=== PATIENT | female | born 1990 | race Two or more races ===

== ENCOUNTER 2016-08-18 08:53 | Emergency (ER) | payer OTHER ==
[~2016-08-18] VITALS: Ht 160 cm; Wt 50.0 kg
[~2016-08-18 08:53] MED LIST: ZOFR4TAB3 SL
[2016-08-18 08:55] VITALS: BP 119/57; PULSE 97; RESP 18; TEMP 97.8; O2SAT 99
--- NOTE | 2016-08-18 09:38 | PD ---
HPI Chief Complaint: Anxiety Time Seen by Provider: 09:21 Travel History International Travel<30 days: No Contact w/Intl Traveler<30days: No Traveled to known affect area: No History of Present Illness HPI 25-year-old female with history of anxiety, not on any medication, here for evaluation of feeling very anxious. The patient reports that her anxiety has worsened over the last couple of weeks, worse over the last 4 days. She reports that she has had little sleep over the last 4 days, feels tremulous, has been nauseous and has had a few episodes of vomiting. She is having some mild epigastric discomfort associated with vomiting. She denies suicidal or homicidal ideation. Occasional alcohol use. No drug use. PFSH Past Medical History Anxiety: Yes Diminished Hearing: No Tetanus Vaccination: < 5 Years Influenza Vaccination: No ?: Not LMP: 07/19/16 : 2 Para: 0 Miscarriage: 0 : 2 Past Surgical History Joint Replacement: Yes (foot surgery ) Social History Alcohol Use: Yes (OCCASIONALLY) Tobacco Use: No Substance Use: No Allergies-Medications (Allergen,Severity, Reaction): Coded Allergies: No Known Allergies (Unverified , 08/18/16) Reported Meds & Prescriptions Reported Meds & Active Scripts Active No Active Prescriptions or Reported Medications Review of Systems Except as stated in HPI: all other systems reviewed are Neg Physical Exam Narrative GENERAL: Well-developed, well-nourished, comfortable, tremulous, no acute distress. SKIN: Warm and dry. No rash. HEAD: Atraumatic. Normocephalic. EYES: Pupils equal and round. No scleral icterus. No injection or drainage. ENT: Mucous membranes pink and moist. NECK: Trachea midline. No JVD. CARDIOVASCULAR: Regular rate and rhythm. No murmur appreciated. RESPIRATORY: No accessory muscle use. Clear to auscultation. Breath sounds equal bilaterally. GASTROINTESTINAL: Abdomen soft, non-tender, nondistended. MUSCULOSKELETAL: No obvious deformities. No clubbing. No cyanosis. No edema. NEUROLOGICAL: Awake and alert. No obvious cranial nerve deficits. Motor grossly within normal limits. Normal speech. PSYCHIATRIC: Appropriate mood and affect; insight and judgment normal. Data Data Last Documented VS Vital Signs Date Time Temp Pulse Resp B/P Pulse Ox O2 Delivery O2 Flow Rate FiO2 08/18/16 08:55 97.8 97 18 119/57 99 Room Air Orders Basic Metabolic Panel (Bmp) (08/18/16 09:59) Beta Hcg (Quant/Titer) (08/18/16 09:59) Complete Blood Count With Diff (08/18/16 09:59) Iv Access Insert/Monitor (08/18/16 09:59) Ecg Monitoring (08/18/16 09:59) Oximetry (08/18/16 09:59) Sodium Chlor 0.9% 1000 Ml Inj (Ns 1000 M (08/18/16 09:59) Sodium Chloride 0.9% Flush (Ns Flush) (08/18/16 10:00) Lorazepam Inj (Ativan Inj) (08/18/16 10:00) Labs Laboratory Tests Test 08/18/16 10:00 White Blood Count 6.9 TH/MM3 Red Blood Count 4.42 MIL/MM3 Hemoglobin 13.8 GM/DL Hematocrit 39.7 % Mean Corpuscular Volume 89.7 FL Mean Corpuscular Hemoglobin 31.1 PG Mean Corpuscular Hemoglobin 34.7 % Concent Red Cell Distribution Width 12.2 % Platelet Count 297 TH/MM3 Mean Platelet Volume 8.9 FL Neutrophils (%) (Auto) 75.2 % Lymphocytes (%) (Auto) 19.1 % Monocytes (%) (Auto) 5.4 % Eosinophils (%) (Auto) 0.1 % Basophils (%) (Auto) 0.2 % Neutrophils # (Auto) 5.2 TH/MM3 Lymphocytes # (Auto) 1.3 TH/MM3 Monocytes # (Auto) 0.4 TH/MM3 Eosinophils # (Auto) 0.0 TH/MM3 Basophils # (Auto) 0.0 TH/MM3 CBC Comment DIFF FINAL Differential Comment Sodium Level 137 MEQ/L Potassium Level 3.9 MEQ/L Chloride Level 104 MEQ/L Carbon Dioxide Level 22.3 MEQ/L Anion Gap 11 MEQ/L Blood Urea Nitrogen 17 MG/DL Creatinine 0.75 MG/DL Estimat Glomerular Filtration 96 ML/MIN Rate Random Glucose 84 MG/DL Calcium Level 8.5 MG/DL Human Chorionic Gonadotropin, LESS THAN 1 Quant MIU/ML MDM Medical Decision Making Medical Screen Exam Complete: Yes Emergency Medical Condition: Yes Medical Record Reviewed: Yes Differential Diagnosis Anxiety, depression, metabolic abnormality, terri Narrative Course Initial vital signs show heart rate 97, blood pressure 119/57, pulse ox 99% on room air, oral temp of 97.8F. CBC is unremarkable. BMP is unremarkable. Beta hCG is negative. The patient was given a dose of Ativan and on reassessment she is resting comfortably. She states she feels a lot better. She is not suicidal or homicidal. She is stable for discharge home with outpatient follow-up with a psychiatrist this week. She was informed on when to return to the emergency department. She verbalizes understanding and agreement with plan. Diagnosis Primary Impression: Anxiety Referrals: Sedrick Singh MD 3 days [facility] 3 days Additional Instructions: Follow-up with psychiatrist Dr. Singh or a psychiatrist of your choice this week. Return to the emergency department for worsening symptoms or any other concerns. Scripts No Active Prescriptions or Reported Meds Disposition: 01 DISCHARGE HOME Condition: Stable Gerber Turner MD Aug 18, 2016 09:38
[2016-08-18] MEDS ORDERED: SODIUM CHLOR 0.9% 1000 ML INJ 1,000 ML IV SCH (09:59)
[2016-08-18] MEDS ORDERED: LORazepam 2 MG/ML VIAL IV PUSH ONE (10:00)
[2016-08-18] MEDS ORDERED: SODIUM CHLORIDE 0.9% FLUSH 10 ML FLUSH IV FLUSH PRN (10:00)
[2016-08-18 10:18] LABS: AUTOMATED NEUTROPHIL # 5.2 TH/MM3 (1.8-7.7); BASOPHIL % 0.2 % (0.0-2.0); EOSINOPHIL % 0.1 % (0.0-4.0); HEMATOCRIT 39.7 % (35.0-46.0); HEMO FLAGS DIFF FINAL; LYMPH % 19.1 % (9.0-44.0); LYMPHOCYTE # 1.3 TH/MM3 (1.0-4.8); MEAN CELL VOLUME 89.7 FL (80.0-100.0); MEAN CORPUSCULAR HEMOGLOBIN 31.1 PG (27.0-34.0); MEAN CORPUSCULAR HGB CONC 34.7 % (32.0-36.0); MONO % 5.4 % (0.0-8.0); NEUT % 75.2 % (16.0-70.0); PLATELET COUNT 297 TH/MM3 (150-450); RED BLOOD COUNT 4.42 MIL/MM3 (4.00-5.30); RED CELL DISTRIBUTION WIDTH 12.2 % (11.6-17.2); WHITE BLOOD COUNT 6.9 TH/MM3 (4.0-11.0)
[2016-08-18 10:31] LABS: ANION GAP 11 MEQ/L (5-15); BICARBONATE 22.3 MEQ/L (21.0-32.0); BLOOD UREA NITROGEN 17 MG/DL (7-18); CHLORIDE 104 MEQ/L (98-107); GLOMERULAR FILTRATION RATE 96 ML/MIN (>89); POTASSIUM 3.9 MEQ/L (3.5-5.1); SODIUM (NA) 137 MEQ/L (136-145)
[2016-08-18 10:36] LABS: BETA HCG QUANT LESS THAN 1 MIU/ML (0-5)
== END 2016-08-18 12:04 | disposition home or self-care (01) ==
LOC: NEPC 08:53
DX: F41.9 Anxiety disorder, unspecified (principal); R11.2 Nausea with vomiting, unspecified
CPT/HCPCS: 80048; 84702; 85025; 96361; 96374; 99283; J2060; J7030

== ENCOUNTER 2016-09-16 08:41 | Emergency (ER) | payer OTHER ==
[~2016-09-16] VITALS: Ht 160 cm; Wt 50.0 kg
[2016-09-16 08:43] VITALS: BP 114/69; PULSE 72; RESP 16; TEMP 98.2; O2SAT 98
[2016-09-16 09:21] VITALS: BP 115/62; PULSE 70; RESP 18; O2SAT 98
[2016-09-16 09:56] LABS: BACTERIA, URINE RARE /hpf; BLOOD, URINE LARGE (NEG); COMMENT (UR) CULTURE INDICATED; CULTURE IF INDICATED CULTURE INDICATED; GLUCOSE,URINE NEG (NEG); KETONE, URINE NEG (NEG); MUCUS URINE MANY /lpf (OCC); NITRITE,URINE NEG (NEG); SQUAMOUS EPITHELIAL CELL URINE 6 /hpf (0-5)
[2016-09-16 10:00] LABS: URINE COLOR LIGHT-RED (YELLW/STRAW)
--- NOTE | 2016-09-16 10:05 | PD ---
HPI . Suprapubic pain Chief Complaint: Complaint Time Seen by Provider: 09:11 Travel History International Travel<30 days: No Contact w/Intl Traveler<30days: No Traveled to known affect area: No History of Present Illness HPI Patient presents with suprapubic pain for 2 days associated with hematuria and urgency. She denies fever or vomiting. She describes her pain as intermittent and achy rates it as a 7/10. PFSH Past Medical History Anxiety: Yes Diminished Hearing: No ?: Not LMP: 08/2016 : 2 Para: 0 Miscarriage: 0 : 2 Past Surgical History Joint Replacement: Yes (foot surgery ) Social History Alcohol Use: Yes (OCCASIONALLY) Tobacco Use: No Substance Use: Yes (THC weekly) Allergies-Medications (Allergen,Severity, Reaction): Coded Allergies: No Known Allergies (Unverified , 09/16/16) Reported Meds & Prescriptions Reported Meds & Active Scripts Active No Active Prescriptions or Reported Medications Review of Systems Except as stated in HPI: all other systems reviewed are Neg General / Constitutional: No: Fever, Chills Gastrointestinal: No: Nausea, Vomiting Genitourinary: Positive: Urgency, Frequency, Hematuria, No: Dysuria Physical Exam Narrative GENERAL: Awake and alert and in no acute distress. SKIN: Warm and dry. HEAD: Atraumatic. Normocephalic. EYES: Pupils equal and round. NECK: Trachea midline. CARDIOVASCULAR: Regular rate and rhythm. RESPIRATORY: No accessory muscle use. ABD: Soft and nontender. No CVA tenderness. MUSCULOSKELETAL: No obvious deformities. No edema. NEUROLOGICAL: Awake and alert. No obvious cranial nerve deficits. Motor grossly within normal limits. Normal speech. PSYCHIATRIC: Appropriate mood and affect; insight and judgment normal. Data Data Last Documented VS Vital Signs Date Time Temp Pulse Resp B/P Pulse Ox O2 Delivery O2 Flow Rate FiO2 09/16/16 09:21 70 18 09/16/16 09:21 115/62 98 Room Air 09/16/16 08:43 98.2 Orders Urinalysis - C+S If Indicated (09/16/16 09:11) Ed Urine Pregnancytest Poc (09/16/16 09:11) Urine Culture (09/16/16 09:10) Labs Laboratory Tests Test 09/16/16 09:10 Urine Color LIGHT-RED Urine Turbidity HAZY Urine pH 6.0 Urine Specific [place] 1.024 Urine Protein 30 mg/dL Urine Glucose (UA) NEG mg/dL Urine Ketones NEG mg/dL Urine Occult Blood LARGE Urine Nitrite NEG Urine Bilirubin NEG Urine Urobilinogen LESS THAN 2.0 MG/DL Urine Leukocyte Esterase LARGE Urine RBC /hpf Urine WBC /hpf Urine Squamous Epithelial 6 /hpf Cells Urine Bacteria RARE /hpf Urine Mucus MANY /lpf Microscopic Urinalysis Comment CULTURE INDICATED MDM Medical Decision Making Medical Screen Exam Complete: Yes Emergency Medical Condition: Yes Differential Diagnosis Differential diagnosis of pelvic pain includes but is not limited to UTI, PID, ectopic , spontaneous AB, constipation, viral illness Narrative Course Patient presents with suprapubic pain associated with urinary urgency and hematuria. Laboratory Tests Test 09/16/16 09:10 Urine Color LIGHT-RED Urine Turbidity HAZY Urine pH 6.0 Urine Specific [place] 1.024 Urine Protein 30 mg/dL Urine Glucose (UA) NEG mg/dL Urine Ketones NEG mg/dL Urine Occult Blood LARGE Urine Nitrite NEG Urine Bilirubin NEG Urine Urobilinogen LESS THAN 2.0 MG/DL Urine Leukocyte Esterase LARGE Urine RBC /hpf Urine WBC /hpf Urine Squamous Epithelial 6 /hpf Cells Urine Bacteria RARE /hpf Urine Mucus MANY /lpf Microscopic Urinalysis Comment CULTURE INDICATED Diagnosis Primary Impression: UTI (urinary tract infection) Qualified Code: N30.01 - Acute cystitis with hematuria Patient Instructions: General Instructions, Urinary Tract Infection in Women ( GEN) Med/Other Pt SpecificInfo: Prescription(s) given Scripts Sulfamethoxazole-Trimethoprim (Bactrim DS)800-160 Mg Tab1 Tab PO BID #14 TAB Ref 0 Prov:Mallory Davis MD 09/16/16 Disposition: 01 DISCHARGE HOME Condition: Stable Mallory Davis MD Sep 16, 2016 10:05
[2016-09-16] MEDS ORDERED: BACT800T5 PO (10:10)
== END 2016-09-16 10:20 | disposition home or self-care (01) ==
LOC: NEPD 08:41
DX: N39.0 Urinary tract infection, site not specified (principal); R39.15 Urgency of urination; R10.30 Lower abdominal pain, unspecified; F12.90 Cannabis use, unspecified, uncomplicated
CPT/HCPCS: 81001; 84703; 87086; 99283

== ENCOUNTER 2016-09-30 07:48 | Emergency (ER) | payer OTHER ==
[~2016-09-30] VITALS: Ht 160 cm; Wt 49.0 kg
[~2016-09-30 07:48] MED LIST changes: +BACT800T5 PO; -ZOFR4TAB3 SL
[2016-09-30 07:50] VITALS: BP 107/78; PULSE 66; RESP 14; TEMP 98.3; O2SAT 98
[2016-09-30 08:03] VITALS: BP 124/77; PULSE 80; RESP 16; O2SAT 100
--- NOTE | 2016-09-30 08:11 | PD ---
HPI Chief Complaint: GI Complaint Time Seen by Provider: 08:05 Travel History International Travel<30 days: No Contact w/Intl Traveler<30days: No Traveled to known affect area: No History of Present Illness HPI 26 year-old female presents with vomiting, diarrhea, upper abdominal pain over the past couple hours. She denies recurrent history of this. She denies migration the pain. Quality pain is sharp. Severity is 6-1/2 out of 10. She states her last menstrual cycle was at the end of last month. Quality is nonbloody. Severity is couple episodes. PFSH Past Medical History Anxiety: Yes Diminished Hearing: No Influenza Vaccination: No ?: Not LMP: 09/25/16 : 2 Para: 0 Miscarriage: 0 : 2 Past Surgical History Joint Replacement: Yes (foot surgery ) Social History Alcohol Use: Yes (OCCASIONALLY) Tobacco Use: No Substance Use: Yes (THC OCCASIONALLY) Allergies-Medications (Allergen,Severity, Reaction): Coded Allergies: No Known Allergies (Unverified , 09/30/16) Reported Meds & Prescriptions Reported Meds & Active Scripts Active No Active Prescriptions or Reported Medications Review of Systems Except as stated in HPI: all other systems reviewed are Neg Physical Exam Narrative GENERAL: Well-nourished, well-developed patient. SKIN: Warm and dry. HEAD: Normocephalic and atraumatic. EYES: No injection or drainage. ENT: No nasal drainage noted. NECK: Supple, trachea midline. CARDIOVASCULAR: Regular rate and rhythm RESPIRATORY: No increased effort. No accessory muscle use. GASTROINTESTINAL: Abdomen soft, tender epigastric area, nondistended. EXTREMITIES: No edema. NEUROLOGICAL: Awake and alert. Motor and sensory grossly within normal limits. Normal speech. Data Data Last Documented VS Vital Signs Date Time Temp Pulse Resp B/P Pulse Ox O2 Delivery O2 Flow Rate FiO2 09/30/16 08:03 80 16 124/77 100 Room Air 09/30/16 07:50 98.3 Orders Complete Blood Count With Diff (09/30/16 08:07) Comprehensive Metabolic Panel (09/30/16 08:07) Urinalysis - C+S If Indicated (09/30/16 08:07) Lipase (09/30/16 08:07) Iv Access Insert/Monitor (09/30/16 08:07) Ed Urine Pregnancytest Poc (09/30/16 08:07) Ondansetron Inj (Zofran Inj) (09/30/16 08:15) Sodium Chlor 0.9% 1000 Ml Inj (Ns 1000 M (09/30/16 08:15) Oral Rehydration (09/30/16 09:24) Labs Laboratory Tests Test 09/30/16 08:20 White Blood Count 4.9 TH/MM3 Red Blood Count 4.03 MIL/MM3 Hemoglobin 13.0 GM/DL Hematocrit 36.7 % Mean Corpuscular Volume 91.1 FL Mean Corpuscular Hemoglobin 32.2 PG Mean Corpuscular Hemoglobin 35.4 % Concent Red Cell Distribution Width 12.3 % Platelet Count 270 TH/MM3 Mean Platelet Volume 8.8 FL Neutrophils (%) (Auto) 60.0 % Lymphocytes (%) (Auto) 29.8 % Monocytes (%) (Auto) 8.9 % Eosinophils (%) (Auto) 0.8 % Basophils (%) (Auto) 0.5 % Neutrophils # (Auto) 3.0 TH/MM3 Lymphocytes # (Auto) 1.5 TH/MM3 Monocytes # (Auto) 0.4 TH/MM3 Eosinophils # (Auto) 0.0 TH/MM3 Basophils # (Auto) 0.0 TH/MM3 CBC Comment DIFF FINAL Differential Comment Urine Color YELLOW Urine Turbidity CLEAR Urine pH 7.5 Urine Specific [place] 1.022 Urine Protein NEG mg/dL Urine Glucose (UA) NEG mg/dL Urine Ketones NEG mg/dL Urine Occult Blood NEG Urine Nitrite NEG Urine Bilirubin NEG Urine Urobilinogen LESS THAN 2.0 MG/DL Urine Leukocyte Esterase NEG Urine RBC LESS THAN 1 /hpf Urine WBC LESS THAN 1 /hpf Urine Squamous Epithelial 3 /hpf Cells Urine Mucus FEW /lpf Microscopic Urinalysis Comment CULT NOT INDICATED Sodium Level 138 MEQ/L Potassium Level 4.1 MEQ/L Chloride Level 108 MEQ/L Carbon Dioxide Level 24.7 MEQ/L Anion Gap 5 MEQ/L Blood Urea Nitrogen 14 MG/DL Creatinine 0.81 MG/DL Estimat Glomerular Filtration 87 ML/MIN Rate Random Glucose 84 MG/DL Calcium Level 8.6 MG/DL Total Bilirubin 0.8 MG/DL Aspartate Amino Transf 17 U/L (AST/SGOT) Alanine Aminotransferase 9 U/L (ALT/SGPT) Alkaline Phosphatase 42 U/L Total Protein 7.0 GM/DL Albumin 4.1 GM/DL Lipase 154 U/L MDM Medical Decision Making Medical Screen Exam Complete: Yes Emergency Medical Condition: Yes Medical Record Reviewed: Yes (past history confirmed) Interpretation(s) CBC & BMP Diagram 09/30/16 08:20 Differential Diagnosis Gastritis, gastroenteritis, cholelithiasis, pancreatitis Narrative Course Will check blood work, urinalysis and dose with IV fluids and Zofran and reevaluate labs wnl, no emesis here, tolerating liquids, Patient denies any new complaints and states that they are feeling better. Patient happy with care, all questions answered. Patient knows that follow up is incumbent on them and to return to the emergency room immediately if new or worsening symptoms develop. Patient given strict return precautions, vitals reviewed and are normal, agrees to further workup as an outpatient. Diagnosis Primary Impression: Vomiting and diarrhea Additional Impression: Abdominal pain Qualified Code: R10.13 - Epigastric pain Patient Instructions: General Instructions Additional Instructions: return as needed, follow with primary this week, tylenol as needed Med/Other Pt SpecificInfo: Prescription(s) given Scripts Ondansetron Odt (Zofran Odt)4 Mg Tab4 Mg SL Q6HR PRN (Nausea/Vomiting) #10 TAB Prov:Bibiana Esparza MD 09/30/16 Disposition: 01 DISCHARGE HOME Condition: Stable Bibiana Esparza MD September 30, 2016 08:11
[2016-09-30] MEDS ORDERED: ONDANSETRON HCL 4 MG/2 ML VIAL IV PUSH ONE (08:15)
[2016-09-30] MEDS ORDERED: SODIUM CHLOR 0.9% 1000 ML INJ 1,000 ML IV ONE (08:15)
[2016-09-30 08:46] LABS: BASOPHIL % 0.5 % (0.0-2.0); BLOOD, URINE NEG (NEG); COMMENT (UR) CULT NOT INDICATED; CULTURE IF INDICATED CULT NOT INDICATED; EOSINOPHIL % 0.8 % (0.0-4.0); GLUCOSE,URINE NEG (NEG); HEMATOCRIT 36.7 % (35.0-46.0); HEMO FLAGS DIFF FINAL; KETONE, URINE NEG (NEG); LYMPH % 29.8 % (9.0-44.0); LYMPHOCYTE # 1.5 TH/MM3 (1.0-4.8); MEAN CELL VOLUME 91.1 FL (80.0-100.0); MEAN CORPUSCULAR HEMOGLOBIN 32.2 PG (27.0-34.0); MEAN CORPUSCULAR HGB CONC 35.4 % (32.0-36.0); MONO % 8.9 % (0.0-8.0); MUCUS URINE FEW /lpf (OCC); NITRITE,URINE NEG (NEG); PH, URINE 7.5 (5.0-8.5); PLATELET COUNT 270 TH/MM3 (150-450); RED BLOOD COUNT 4.03 MIL/MM3 (4.00-5.30); RED CELL DISTRIBUTION WIDTH 12.3 % (11.6-17.2); SQUAMOUS EPITHELIAL CELL URINE 3 /hpf (0-5); URINE COLOR YELLOW (YELLW/STRAW); WHITE BLOOD COUNT 4.9 TH/MM3 (4.0-11.0)
[2016-09-30 08:58] LABS: ALKALINE PHOSPHATASE 42 U/L (45-117); TOTAL BILIRUBIN ADULT 0.8 MG/DL (0.2-1.0)
[2016-09-30 09:10] LABS: ALT (GPT) 9 U/L (10-53); ANION GAP 5 MEQ/L (5-15); AST (GOT) 17 U/L (15-37); BICARBONATE 24.7 MEQ/L (21.0-32.0); BLOOD UREA NITROGEN 14 MG/DL (7-18); CHLORIDE 108 MEQ/L (98-107); GLOMERULAR FILTRATION RATE 87 ML/MIN (>89); SODIUM (NA) 138 MEQ/L (136-145)
[2016-09-30 09:14] LABS: POTASSIUM 4.1 MEQ/L (3.5-5.1)
[2016-09-30] MEDS ORDERED: ZOFR4TAB3 SL (10:31)
== END 2016-09-30 10:57 | disposition home or self-care (01) ==
LOC: NEPC 07:48
DX: R11.10 Vomiting, unspecified (principal); R19.7 Diarrhea, unspecified; R10.13 Epigastric pain; F19.10 Other psychoactive substance abuse, uncomplicated
CPT/HCPCS: 80053; 81001; 83690; 84703; 85025; 96361; 96374; 99284; J2405; J7030

== ENCOUNTER 2017-06-02 09:41 | Emergency (ER) | payer OTHER ==
[2017-06-02 09:50] VITALS: BP 124/76; PULSE 79; RESP 18; TEMP 98.4; O2SAT 100
[2017-06-02] MEDS ORDERED: SODIUM CHLOR 0.9% 1000 ML INJ 1,000 ML IV ONE (10:01)
[2017-06-02] MEDS ORDERED: MECLIZINE HCL 25 MG TAB PO ONE ×2 (10:15→11:30)
[2017-06-02] MEDS ORDERED: ONDANSETRON HCL 4 MG/2 ML VIAL IVP ONE (10:15)
[2017-06-02] MEDS ORDERED: SODIUM CHLORIDE 0.9% FLUSH 10 ML FLUSH IVF PRN (10:15)
[2017-06-02 10:17] VITALS: RESP 16; O2SAT 98
--- NOTE | 2017-06-02 10:17 | PD ---
HPI Chief Complaint: Dizziness Time Seen by Provider: 09:53 Travel History International Travel<30 days: No Contact w/Intl Traveler<30days: No Traveled to known affect area: No History of Present Illness HPI 26-year-old female presents to the emergency Department with complaint of dizziness for the last month to month and a half with a syncopal episode this morning. Denies history of syncopal episodes. Syncopal episode was unwitnessed. She doesn't know if she hit her head. She woke up on the floor with nausea and vomiting. Reports feeling off balance. Denies focal deficits or weakness. Denies confusion, disorientation, change in mentation, slurred speech. Denies fevers, headache, chest pain, shortness of breath, abdominal pain, dysuria. Last menstrual period ended yesterday. Denies contraception use. Has not taken any medication or drainage from his alleviate symptoms. Feels like the room is spinning when she puts her head back. Feels like the room is waves the when she has her head forward. Symptoms are worse with her head back. Better when her head is forward. Reports occasional marijuana use. Denies other illicit drug use. Denies alcohol or tobacco use. Does not have established primary care provider. No known allergies. Denies significant past medical history. Has no medical complaints. No other modifying factors or associated signs and symptoms. PFSH Past Medical History Anxiety: Yes Diminished Hearing: No Gastrointestinal Disorders: Yes (IBS) ?: Not LMP: 05-29-2017 : 2 Para: 0 Miscarriage: 0 : 2 Past Surgical History Joint Replacement: Yes (foot surgery ) Social History Alcohol Use: No Tobacco Use: No Substance Use: Yes (THC BUT NOT RECENTLY) Allergies-Medications (Allergen,Severity, Reaction): Coded Allergies: No Known Allergies (Unverified Adverse Reaction, Unknown, 06/02/17) Reported Meds & Prescriptions Reported Meds & Active Scripts Active Meclizine (Meclizine HCl) 25 Mg Tab 25 Mg PO TID PRN Review of Systems Except as stated in HPI: all other systems reviewed are Neg Physical Exam Narrative GENERAL: Well-nourished, well-developed female patient, in no acute distress SKIN: Warm and dry. HEAD: Atraumatic. Normocephalic. Facial droop noted. Tongue midline. Finger to nose is normal. EYES: Pupils equal and round at 3 mm with brisk reaction. No scleral icterus. No injection or drainage. PERRLA. EOMI. ENT: Mucosa pink and moist. Airway patent. NECK: Trachea midline. No lymphadenopathy. CARDIOVASCULAR: Regular rate and rhythm. No murmur appreciated. RESPIRATORY: No accessory muscle use. Clear to auscultation. Breath sounds equal bilaterally. GASTROINTESTINAL: Abdomen soft, non-tender, nondistended. Hepatic and splenic margins not palpable. Bowel sounds are active 4 quadrants. BACK: No CVA tenderness. MUSCULOSKELETAL: No obvious deformities. No clubbing. No cyanosis. No edema. NEUROLOGICAL: Awake and alert. Oriented 3. No obvious cranial nerve deficits. Motor grossly within normal limits. Normal speech. No ataxia. No mid -line drift. No upper or lower extremity drift. Moves all extremities. 5/5 strength to all extremities. PSYCHIATRIC: Appropriate mood and affect; insight and judgment normal. Data Data Last Documented VS Vital Signs Date Time Temp Pulse Resp B/P (MAP) Pulse Ox O2 Delivery O2 Flow Rate FiO2 06/02/17 10:17 16 98 Room Air 06/02/17 09:50 98.4 79 Orders Orders Electrocardiogram (06/02/17 10:01) Basic Metabolic Panel (Bmp) (06/02/17 10:01) Ed Urine Pregnancytest Poc (06/02/17 10:01) Complete Blood Count With Diff (06/02/17 10:01) Ct Brain W/O Iv Contrast(Rout) (06/02/17 10:01) Ecg Monitoring (06/02/17 10:01) Iv Access Insert/Monitor (06/02/17 10:01) Oximetry (06/02/17 10:01) Meclizine (Antivert) (06/02/17 10:15) Ondansetron Inj (Zofran Inj) (06/02/17 10:15) Sodium Chloride 0.9% Flush (Ns Flush) (06/02/17 10:15) Sodium Chlor 0.9% 1000 Ml Inj (Ns 1000 M (06/02/17 10:01) Drug Screen, Random Urine (06/02/17 10:01) Ed Discharge Order (06/02/17 11:09) Meclizine (Antivert) (06/02/17 11:30) Labs Laboratory Tests Test 06/02/17 10:10 06/02/17 10:11 White Blood Count 5.1 TH/MM3 Red Blood Count 4.14 MIL/MM3 Hemoglobin 13.7 GM/DL Hematocrit 39.0 % Mean Corpuscular Volume 94.3 FL Mean Corpuscular Hemoglobin 33.2 PG Mean Corpuscular Hemoglobin Concent 35.2 % Red Cell Distribution Width 12.2 % Platelet Count 291 TH/MM3 Mean Platelet Volume 8.6 FL Neutrophils (%) (Auto) 65.3 % Lymphocytes (%) (Auto) 24.1 % Monocytes (%) (Auto) 9.2 % Eosinophils (%) (Auto) 1.1 % Basophils (%) (Auto) 0.3 % Neutrophils # (Auto) 3.4 TH/MM3 Lymphocytes # (Auto) 1.2 TH/MM3 Monocytes # (Auto) 0.5 TH/MM3 Eosinophils # (Auto) 0.1 TH/MM3 Basophils # (Auto) 0.0 TH/MM3 CBC Comment DIFF FINAL Differential Comment Blood Urea Nitrogen 12 MG/DL Creatinine 0.71 MG/DL Random Glucose 98 MG/DL Calcium Level 8.8 MG/DL Sodium Level 142 MEQ/L Potassium Level 4.5 MEQ/L Chloride Level 108 MEQ/L Carbon Dioxide Level 28.0 MEQ/L Anion Gap 6 MEQ/L Estimat Glomerular Filtration Rate 101 ML/MIN Urine Opiates Screen NEG Urine Barbiturates Screen NEG Urine Amphetamines Screen NEG Urine Benzodiazepines Screen NEG Urine Cocaine Screen NEG Urine Cannabinoids Screen POS [facility] Medical Decision Making Medical Screen Exam Complete: Yes Emergency Medical Condition: Yes Medical Record Reviewed: Yes Differential Diagnosis Syncope, arrhythmia, vertigo, dizziness, anemia, electrolyte imbalance Narrative Course 26-year-old female with dizziness and syncopal episode this morning. Neuro exam is unremarkable. I discussed the patient with Dr. Brenner and he agrees with my plan of care. IV, normal saline bolus, EKG, CBC, BMP, UPT, CT head, meclizine, Zofran ordered. EKG with normal sinus rhythm with arrhythmia; without ST elevation or depression; reviewed by Dr. Brenner. 1045: CBC unremarkable. Drug screen positive for cannabinoids. 1103: CT head with no acute findings. BMP unremarkable. UPT negative. Meclizine prescribed for home. Instructed patient to follow up with primary care provider. Patient verbalizes understanding and agreement with treatment plan. Patient is medically cleared and stable for discharge. Discussed reasons to return to the emergency department. Patient agrees with treatment plan. The patients vital signs are stable and the patient is stable for outpatient follow-up and treatment. Patient discharged home, stable and in no acute distress. Diagnosis Primary Impression: Syncopal vertigo Additional Impression: Junctional rhythm Referrals: [facility] Primary Care Physician Patient Instructions: General Instructions, Syncope (ED) Departure Forms: Tests/Procedures, Work Release Enter return to work date: Jun 04, 2017 Additional Instructions: Meclizine as prescribed Avoid aggravating activity Follow-up with primary care provider Follow-up with cardiology Return to the emergency department immediately with worsening of symptoms Med/Other Pt SpecificInfo: Prescription(s) given Scripts Meclizine (Meclizine) 25 Mg Tab 25 MG PO TID Y for VERTIGO, #10 TAB 0 Refills Prov: Sheri Uribe 06/02/17 Disposition: 01 DISCHARGE HOME Condition: Stable Sheri Uribe Jun 02, 2017 10:17
[2017-06-02 10:29] LABS: AUTOMATED NEUTROPHIL # 3.4 TH/MM3 (1.8-7.7); BASOPHIL % 0.3 % (0.0-2.0); EOSINOPHIL # 0.1 TH/MM3 (0-0.4); EOSINOPHIL % 1.1 % (0.0-4.0); HEMOGLOBIN 13.7 GM/DL (11.6-15.3); LYMPH % 24.1 % (9.0-44.0); LYMPHOCYTE # 1.2 TH/MM3 (1.0-4.8); MEAN CELL VOLUME 94.3 FL (80.0-100.0); MEAN CORPUSCULAR HEMOGLOBIN 33.2 PG (27.0-34.0); MEAN CORPUSCULAR HGB CONC 35.2 % (32.0-36.0); MEAN PLATELET VOLUME 8.6 FL (7.0-11.0); MONO % 9.2 % (0.0-8.0); MONOCYTE # 0.5 TH/MM3 (0-0.9); NEUT % 65.3 % (16.0-70.0); PLATELET COUNT 291 TH/MM3 (150-450); RED BLOOD COUNT 4.14 MIL/MM3 (4.00-5.30); RED CELL DISTRIBUTION WIDTH 12.2 % (11.6-17.2); WHITE BLOOD COUNT 5.1 TH/MM3 (4.0-11.0)
[2017-06-02 10:47] LABS: CALCIUM 8.8 MG/DL (8.5-10.1); CREATININE 0.71 MG/DL (0.50-1.00)
--- NOTE | 2017-06-02 11:00 | RADRPT ---
EXAM DATE/TIME: 06/02/2017 10:47 [facility] COMPARISON: No previous studies available for comparison. INDICATIONS : Dizziness since this morning. RADIATION DOSE: 35.47 CTDIvol (mGy) MEDICAL HISTORY : None SURGICAL HISTORY : None. ENCOUNTER: Initial ACUITY: 1 day PAIN SCALE: 0/10 LOCATION: cranial TECHNIQUE: Multiple contiguous axial images were obtained of the head. Using automated exposure control and adj ustment of the mA and/or kV according to patient size, radiation dose was kept as low as reasonably a chievable to obtain optimal diagnostic quality images. DICOM format image data is available electro nically for review and comparison. FINDINGS: CEREBRUM: The ventricles are normal for age. No evidence of midline shift, mass lesion, hemorrhage or acute in farction. No extra-axial fluid collections are seen. POSTERIOR FOSSA: The cerebellum and brainstem are intact. The 4th ventricle is midline. The cerebellopontine angle i s unremarkable. EXTRACRANIAL: The visualized portion of the orbits is intact. SKULL: The calvaria is intact. No evidence of skull fracture. CONCLUSION: No acute disease. Guy Damico MD on June 02, 2017 at 10:57 Board Certified Radiologist. This report was verified electronically.
[2017-06-02] MEDS ORDERED: MECL-62 PO (11:08)
--- NOTE | 2017-06-02 22:40 | EKG ---
Date Performed: 06/02/2017 Time Performed: 11:02:57 PTAGE: 26 years EKG: Sinus rhythm Diffuse ST changes ABNORMAL RHYTHM ECG PREVIOUS TRACING : 06/02/2017 10.16 DOCTOR: Awais Sanchez Interpretating Date/Time 06/02/2017 22:38:17
--- NOTE | 2017-06-03 18:30 | EKG ---
Date Performed: 06/02/2017 Time Performed: 10:16:39 PTAGE: 26 years EKG: Sinus rhythm WITH SINUS ARRHYTHMIA NORMAL ECG NO PREVIOUS TRACING DOCTOR: Awais Sanchez Interpretating Date/Time 06/07/2017 08:17:39
== END 2017-06-02 12:05 | disposition home or self-care (01) ==
LOC: NEPD 09:41
DX: R42 Dizziness and giddiness (principal); R55 Syncope and collapse; R11.2 Nausea with vomiting, unspecified; F41.9 Anxiety disorder, unspecified; I49.9 Cardiac arrhythmia, unspecified; R94.31 Abnormal electrocardiogram [ECG] [EKG]; Z87.19 Personal history of other diseases of the digestive system; Z79.899 Other long term (current) drug therapy
CPT/HCPCS: 70450; 80048; 80307; 84703; 85025; 93005; 96361; 96374; 99285; J2405; J7030